=== PATIENT | male | born 1995 | race Caucasian/White ===

== ENCOUNTER 2017-08-21 14:52 | Emergency (ER) | payer BC ==
[~2017-08-21] VITALS: Ht 177.8 cm; Wt 77.5 kg
[2017-08-21 15:06] VITALS: TEMP 36.9; O2SAT 98; Ht 177.8 cm; Wt 77.5 kg
--- NOTE | 2017-08-21 15:49 | DIAGNOSTIC IMAGING REPORT ---
CHEST ONE VIEW PORTABLE CLINICAL HISTORY: CHEST PAIN dyspnea COMPARISON STUDY: No previous studies for comparison. FINDINGS: The bones soft tissues and hemidiaphragms are normal. The cardiomediastinal silhouette is normal. The lungs are clear. The pulmonary vasculature is normal. IMPRESSION: Negative chest. The above report was generated using voice recognition software. It may contain grammatical, syntax or spelling errors. Electronically signed by: Golden Srinivasan M.D. 08/21/2017 3:47 PM Dictated Date/Time: 08/21/2017 3:46 PM
[2017-08-21 16:09] LABS: MEAN CELL VOLUME 87.7 fL (80-100); MEAN CORPUSCULAR HEMOGLOBIN 30.6 pg (25-34); MEAN CORPUSCULAR HGB CONC 34.9 g/dl (32-36); MEAN PLATELET VOLUME 9.9 fL (7.4-10.4); PLATELET COUNT 285 K/uL (130-400); RED BLOOD COUNT 5.13 M/uL (4.7-6.1); WHITE BLOOD COUNT 9.38 K/uL (4.8-10.8)
[2017-08-21 16:21] LABS: POINT OF CARE TROPONIN I < 0.030 ng/ml (0-0.045)
[2017-08-21 16:33] LABS: BUN/CREATININE RATIO 14.9 (10-20); CALCIUM 9.6 mg/dl (8.5-10.1); CREATININE 1.03 mg/dl (0.60-1.40)
[2017-08-21 16:36] LABS: ALB/GLOB RATIO 1.3 (0.9-2)
[2017-08-21 18:40] VITALS: BP 134/76; PULSE 76; O2SAT 100
--- NOTE | 2017-08-21 20:08 | EMERGENCY ROOM VISIT NOTE ---
History Report prepared by Chad: Carolin Kothari Under the Supervision of: Dr. Josué Bearden M.D. First contact with patient: 15:18 Chief Complaint: CARDIAC ASSESSMENT Stated Complaint: CHEST PAIN Nursing Triage Summary: Pt arrives by ALS. Reports chest discomfort for the past 3 days. Comes and goes. Associated numbness down left arm and dizziness. Pt denies any cardiac history. denies drug use. reports some beer last night. Pt also reports he vapes Nicotine. History of Present Illness The patient is a 22 year old male who presents to the Emergency Room with complaints of a persistent "sharp chest discomfort" that began 2 days ago. He rates his discomfort as a 7/10 in severity. He notes that he has shortness of breath, sweaty palms, and is nauseous. He states that his discomfort is on and off, but lasts for several hours. The patient states that while he was in class he began feeling some chest discomfort, he stepped outside and noted he became nauseous and dizzy. He was brought to the Emergency Department via EMS. The patient denies any history of heart, lung, or kidney problems. He denies having blood clots in the past. Source of History: patient Onset: 2 days ago Position: chest Symptom Intensity: 7/10 Quality: other (chest discomfort) Timing: other (persistent) Associated Symptoms: + diaphoresis (sweaty palms), + SOB, + nausea Review of Systems See HPI for pertinent positives & negatives. A total of 10 systems reviewed and were otherwise negative. Past Medical & Surgical No prior history of heart or lung disease. Social History Smoking Status: Never Smoker Alcohol Use: occasionally Marital Status: single Occupation Status: [employer] student Current/Historical Medications No Active Prescriptions or Reported Meds Allergies Coded Allergies: No Known Allergies (Unverified , 08/21/17) Physical Exam Vital Signs Date Time Temp Pulse Resp B/P (MAP) Pulse Ox O2 Delivery O2 Flow Rate FiO2 08/21/17 18:40 76 20 134/76 100 08/21/17 18:24 62 20 116/75 99 08/21/17 16:37 65 16 128/66 98 Room Air 08/21/17 15:24 79 08/21/17 15:06 36.9 74 16 145/76 98 Room Air 08/21/17 15:06 98 Room Air 08/21/17 15:06 98 Room Air Physical Exam GENERAL: Patient is anxious HEENT: No acute trauma, normocephalic atraumatic, mucous membranes moist, no nasal congestion, no scleral icterus. NECK: No stridor, no adenopathy, no meningismus, trachea is midline. LUNGS: Clear to auscultation bilaterally, no wheeze, no rhonchi, breath sounds equal. HEART: Without murmurs gallops or rubs, regular rate and rhythm. CHEST: Tender to left chest wall, no rash ABDOMEN: Soft, nontender, bowel sounds positive, no hernias, no peritonitis. EXTREMITIES: No cyanosis or edema, full range of motion of all the joints without pain or difficulty, no signs for acute trauma. NEUROLOGIC: Oriented x 3, no acute motor or sensory deficits, no focal weakness. SKIN: No rash, no jaundice, no diaphoresis. Medical Decision & Procedures ER Provider Diagnostic Interpretation: Radiology results as stated below per my review and radiologist interpretation: CHEST ONE VIEW PORTABLE CLINICAL HISTORY: CHEST PAIN dyspnea COMPARISON STUDY: No previous studies for comparison. FINDINGS: The bones soft tissues and hemidiaphragms are normal. The cardiomediastinal silhouette is normal. The lungs are clear. The pulmonary vasculature is normal. IMPRESSION: Negative chest. The above report was generated using voice recognition software. It may contain grammatical, syntax or spelling errors. Electronically signed by: Golden Srinivasan M.D. 08/21/2017 3:47 PM Laboratory Results 08/21/17 15:55 08/21/17 15:55 Test 08/21/17 15:55 08/21/17 16:00 08/21/17 18:11 Red Blood Count 5.13 M/uL (4.7-6.1) Mean Corpuscular Volume 87.7 fL (80-100) Mean Corpuscular Hemoglobin 30.6 pg (25-34) Mean Corpuscular Hemoglobin Concent 34.9 g/dl (32-36) RDW Standard Deviation 40.5 fL (36.4-46.3) RDW Coefficient of Variation 12.6 % (11.5-14.5) Mean Platelet Volume 9.9 fL (7.4-10.4) Anion Gap 9.0 mmol/L (3-11) Est Creatinine Clear Calc Drug Dose 117.1 ml/min Estimated GFR () 119.8 Estimated GFR (Non- 103.4 BUN/Creatinine Ratio 14.9 (10-20) Calcium Level 9.6 mg/dl (8.5-10.1) Total Bilirubin 0.6 mg/dl (0.2-1) Aspartate Amino Transf (AST/SGOT) 39 U/L (15-37) Alanine Aminotransferase (ALT/SGPT) 42 U/L (12-78) Alkaline Phosphatase 93 U/L (45-117) Total Protein 7.9 gm/dl (6.4-8.2) Albumin 4.4 gm/dl (3.4-5.0) Globulin 3.5 gm/dl (2.5-4.0) Albumin/Globulin Ratio 1.3 (0.9-2) Lipase 112 U/L (73-393) Bedside D-Dimer 42 ng/mlFEU (0-450) Bedside Troponin I < 0.030 ng/ml (0-0.045) Laboratory results reviewed by me. ECG Indication: chest pain Rate (beats per minute): 72 Rhythm: normal sinus Findings: no acute ischemic change, no ectopy ED Course 1431: The patient was evaluated in room B12. A complete history and physical exam was performed. 1831: I reevaluated the patient who was resting comfortably. I also spoke to the patient's mother, who verbalized complete understanding and agreement of the exam findings. 1854: Reevaluated the patient. Discussed results and discharge instructions: He verbalized understanding and agreement. The patient is ready for discharge. Medical Decision The patient is a 22 year old male who presents to the ED with complaints of chest discomfort. Differential diagnoses considered include ME, anxiety, musculoskeletal pain, Pneumothorax, Pneumonia, PE, Dysrhythmia. There is no leukocytosis or concerning anemia. No significant electrolyte abnormality, kidney failure, hepatitis or pancreatitis. EKG shows a sinus rhythm, no acute ischemia. Cardiac enzyme testing 2 is not suggestive of acute cardiac injury. Chest film does not show pneumonia, mediastinal widening or pneumothorax. D-dimer testing is negative. With a negative d-dimer and my low suspicion for PE, I will stop the workup for this diagnosis. The patient presents with left-sided chest pain which has been intermittent. He was very anxious about the pain. The pain was reproducible on exam. The patient's cardiac workup is benign, the pain is likely musculoskeletal. The patient is being discharged with conservative measures. I spoke with the patient about his findings, I spoke to his mother at his request as well. The patient was discharged in stable condition and encouraged to return for any worsening symptoms. Medication Reconcilliation Current Medication List: was personally reviewed by me Blood Pressure Screening Patient's blood pressure: Elevated blood pressure Blood pressure disposition: Elevated BP felt to be situational Impression Primary Impression: Left sided chest pain Scribe Attestation The scribe's documentation has been prepared under my direction and personally reviewed by me in its entirety. I confirm that the note above accurately reflects all work, treatment, procedures, and medical decision making performed by me. Departure Information Dispostion Home / Self-Care Prescriptions No Active Prescriptions or Reported Meds Forms IMPORTANT VISIT INFORMATION Patient Instructions My [facility] Additional Instructions motrin 600 mg 3x per day for 5 days heat to the area will help gentle stretching and massage will help avoid gym and sports for 1 week return if worsening all lab testing today was ok chest film was ok
== END 2017-08-21 18:54 | disposition home or self-care (01) ==
LOC: C.EDB 14:55
DX: R07.9 Chest pain, unspecified (principal); R06.02 Shortness of breath

== ENCOUNTER 2017-10-10 11:17 | Emergency (ER) | payer BC ==
[~2017-10-10] VITALS: Ht 177.8 cm; Wt 82.4 kg
[2017-10-10 11:20] VITALS: TEMP 36.4; Ht 177.8 cm; Wt 82.4 kg
[2017-10-10 11:50] VITALS: O2SAT 97
--- NOTE | 2017-10-10 11:56 | DIAGNOSTIC IMAGING REPORT ---
CHEST ONE VIEW PORTABLE CLINICAL HISTORY: CHEST PAIN dyspnea COMPARISON STUDY: 08/21/2017 FINDINGS: The bones soft tissues and hemidiaphragms are normal. The cardiomediastinal silhouette is normal. The lungs are clear. The pulmonary vasculature is normal. IMPRESSION: Negative chest. The above report was generated using voice recognition software. It may contain grammatical, syntax or spelling errors. Electronically signed by: Golden Srinivasan M.D. 10/10/2017 11:55 AM Dictated Date/Time: 10/10/2017 11:55 AM
--- NOTE | 2017-10-10 12:01 | EMERGENCY ROOM VISIT NOTE ---
History First contact with patient: 11:45 Chief Complaint: CHEST PAIN Stated Complaint: CHEST/HEART PAINS AND SWELLING History of Present Illness The patient is a 22 year old male who presents to the Emergency Room with complaints of chest pain and increased heart rate. The patient states he was here at the end of last year with exactly the same symptoms. He states the he begins experiencing a slight amount of numbness, increased heart rate, and chest discomfort. He states he was diagnosed with a muscular/inflammatory condition at that time and treated with anti-inflammatories. He states the symptoms lasted for a few days after he was discharged from the emergency department, and he then went home on when to break. He states he noticed the symptoms occasionally over break, but they were not nearly as severe as they have been while he is here in school. The patient states past few days, he has been noticing increasing episodes of chest discomfort. He states yesterday he was feeling woozy in addition to having chest pain, so he went to [facility]. A chest x-ray was performed there as well as some lab work, and the provider compared the chest x-ray to one on the patient's computer which was performed in 2013. The provider was concerned that the heart may be slightly more enlarged than the previous x-ray. They recommended the patient come here for further evaluation. The patient states over the last 2 days, he has been experiencing sporadic discomfort, describes it as a pain/sharp pain in the left chest wall, lasts for a few minutes, then improves. He states with the pain, he experiences a tightness and dyspnea, and feels that he has to take short small breaths to oxygenate properly. He states the symptoms go away for a few hours, then return with the same type of episode. Patient states he exercises a proximally 5 times per week, and has never noticed any pain or symptoms with exercise. He states nothing that he does seems to help or worsen the pain. He does report some occasional congestion, headache, and dizziness over the past few days, but associated the headache and dizziness with a low blood sugar. He denies any abdominal pain, diarrhea, constipation, cough, wheezing, or recent illness. He has not taken any medication for the symptoms. Review of Systems A complete 10 point review of systems was reviewed with the patient with pertinent positives and negatives as per history of present illness. All else were negative. Past Medical/Surgical History None Family History Hypertension Social History Smoking Status: Never Smoker Smokeless Tobacco Use: No Alcohol Use: occasionally Drug Use: none Marital Status: single Housing Status: lives with roommate Occupation Status: [employer] student Current/Historical Medications Scheduled Ibuprofen (Advil), 600 MG PO UD Allergies None Physical Exam Vital Signs Date Time Temp Pulse Resp B/P (MAP) Pulse Ox O2 Delivery O2 Flow Rate FiO2 10/10/17 13:38 65 16 146/83 98 10/10/17 12:13 70 18 155/69 97 Room Air 10/10/17 12:10 68 10/10/17 11:50 97 Room Air 10/10/17 11:50 97 Room Air 10/10/17 11:20 36.4 65 18 155/83 98 Room Air Physical Exam VITALS: Vitals are noted on the nurse's note and reviewed by myself. Vital signs stable. GENERAL: This is a 22-year-old white male, in no acute distress, nondiaphoretic , well-developed well-nourished. SKIN: The skin was without rashes, erythema, edema, or bruising. There is no tenting of the skin. Capillary reflex less than 2 seconds. HEAD: Normocephalic atraumatic. EARS: External auditory canals clear, tympanic membranes pearly ahn without erythema or effusion bilaterally. EYES: Pupils equal round and reactive to light and accommodation. Conjunctivae without injection, sclerae without icterus. Extraocular movements intact. NOSE: Patent, turbinates without inflammation or discharge. No sinus tenderness. MOUTH: Mucous membranes moist. Tonsils are not enlarged. Pharynx without erythema or exudate. Uvula midline. Airway patent. Tongue does not deviate. NECK: Supple without nuchal rigidity. No lymphadenopathy. No thyromegaly. Cervical spine is nontender. No JVD. HEART: Regular rate and rhythm without murmurs gallops or rubs. No edema. LUNGS: Clear to auscultation bilaterally without wheezes, rales or rhonchi. No dullness to percussion. No retractions or accessory muscle use. ABDOMEN: Positive bowel sounds x 4. Normal tympanic percussion. Soft, nontender, without masses or organomegaly. Donaldson sign negative. No guarding or rebound tenderness. MUSCULOSKELETAL: Tenderness on palpation of the left chest wall. No muscle atrophy, erythema, or edema noted. Full range of motion without joint tenderness in all extremities. No other tenderness to palpation. Normal gait. Strength 5/5 throughout. NEURO: Patient was alert and oriented to person place and time. Normal sensation to light and sharp touch. Deep tendon reflexes 2+ throughout. No focal neurological deficits. Medical Decision & Procedures ER Provider Diagnostic Interpretation: CHEST ONE VIEW PORTABLE CLINICAL HISTORY: CHEST PAIN dyspnea COMPARISON STUDY: 08/21/2017 FINDINGS: The bones soft tissues and hemidiaphragms are normal. The cardiomediastinal silhouette is normal. The lungs are clear. The pulmonary vasculature is normal. IMPRESSION: Negative chest. The above report was generated using voice recognition software. It may contain grammatical, syntax or spelling errors. Electronically signed by: Golden Srinivasan M.D. 10/10/2017 11:55 AM Dictated Date/Time: 10/10/2017 11:55 AM CBC is without leukocytosis, anemia, thrombocytopenia. CMP did not reveal any significant renal, hepatic, electrolyte abnormalities. PT, PTT, INR negative. D-dimer less than 190. CK-MB normal. Troponin normal. Laboratory Results 10/10/17 11:42 10/10/17 11:42 Test 10/10/17 11:42 10/10/17 11:49 10/10/17 12:05 Red Blood Count 4.91 M/uL (4.7-6.1) Mean Corpuscular Volume 90.0 fL (80-100) Mean Corpuscular Hemoglobin 30.8 pg (25-34) Mean Corpuscular Hemoglobin Concent 34.2 g/dl (32-36) RDW Standard Deviation 43.3 fL (36.4-46.3) RDW Coefficient of Variation 13.2 % (11.5-14.5) Mean Platelet Volume 10.3 fL (7.4-10.4) Prothrombin Time 10.8 SECONDS (9.0-12.0) Prothromb Time International Ratio 1.0 (0.9-1.1) Activated Partial Thromboplast Time 27.1 SECONDS (21.0-31.0) Partial Thromboplastin Ratio 1.0 Anion Gap 6.0 mmol/L (3-11) Est Creatinine Clear Calc Drug Dose 107.7 ml/min Estimated GFR () 108.3 Estimated GFR (Non- 93.4 BUN/Creatinine Ratio 9.1 (10-20) Calcium Level 9.1 mg/dl (8.5-10.1) Total Bilirubin 0.5 mg/dl (0.2-1) Aspartate Amino Transf (AST/SGOT) 26 U/L (15-37) Alanine Aminotransferase (ALT/SGPT) 29 U/L (12-78) Alkaline Phosphatase 92 U/L (45-117) Total Creatine Kinase 79 U/L (39-308) Creatine Kinase MB 1.2 ng/ml (0.5-3.6) Creatine Kinase MB Ratio 1.5 (0-3.0) Total Protein 7.7 gm/dl (6.4-8.2) Albumin 4.2 gm/dl (3.4-5.0) Globulin 3.5 gm/dl (2.5-4.0) Albumin/Globulin Ratio 1.2 (0.9-2) Bedside Troponin I < 0.030 ng/ml (0-0.045) D-Dimer < 190 ug/L FEU (0-500) ECG Indication: chest pain Rate (beats per minute): 62 Rhythm: normal sinus Change: no significant change ED Course Critical pathways initiated. IV access obtained, labs drawn. EKG performed. The patient was seen and evaluated as above. I did review the orders, and I did a D-dimer test. Labs, imaging, EKG performed and reviewed. I did discuss the case with Dr. Bearden. He is in agreement with the assessment and plan. Discharge instructions reviewed, the patient was discharged home in condition. Medical Decision Etiologies such as cardiac ischemia, aortic dissection, pulmonary embolism, pneumonia, pneumothorax, psychological, musculoskeletal, infections, gastrointestinal, as well as others were entertained. This is a 22-year-old male patient presents to the emergency department today, for the second time in approximately one and half months complaining of left chest wall pain. The pain he describes sharp, and is reproducible on palpation. He was seen by [facility] yesterday, and did have a workup performed, and on comparison of a previous chest x-ray performed in 2013 , the patient's provider was concerned that the heart may have been slightly enlarged. He was encouraged to come to the emergency department today for evaluation. His cardiopulmonary evaluation here in the ED was overall negative , including a negative d-dimer. I did have long discussion with the patient regarding the possibility that his symptoms could be anxiety related. The patient states that he believes this could be contributing, however does not wish to be treated at this time. He does have a follow-up appointment scheduled with [facility] tomorrow, and will discuss the possibility for treatment for anxiety at that time. Medication Reconcilliation Current Medication List: was personally reviewed by me Blood Pressure Screening Patient's blood pressure: Normal blood pressure Impression Primary Impression: Chest wall pain Departure Information Dispostion Home / Self-Care Condition GOOD Referrals [facility] (PCP) Patient Instructions Anxiety Disorder, ED Chest Pain NonCardiac, My [facility] Additional Instructions He was seen in the emergency room today for left-sided chest pain. Labs, EKG, and imaging were unrevealing. D-dimer testing was performed to rule out blood clot. This was negative. As discussed, I suspect a musculoskeletal versus anxiety component related to the chest wall pain. Ibuprofen(Motrin, Advil) may be used for fever or pain. Use 600mg every six hours as needed. Take with food. Avoid using more than 2400mg in a 24 hour period. Do not use 2400mg per day for more than three consecutive days without physician direction. Prolonged inappropriate use can lead to stomach upset or ulcers. (AND/OR) Acetaminophen(Tylenol) may be used for fever or pain. Use 1000mg every six hours as needed. Avoid using more than 3000mg in a 24 hour period. Please follow up with [facility] tomorrow at your scheduled appointment. I do recommend you discuss possible treatment for anxiety at that time. Return to the emergency department for worsening chest pain, difficulty breathing, leg swelling, coughing up blood, dizziness, headache, fever, chills, or other concerning symptoms.
[2017-10-10 12:12] LABS: HEMATOCRIT 44.2 % (42-52); HEMOGLOBIN 15.1 g/dL (14.0-18.0); MEAN CORPUSCULAR HEMOGLOBIN 30.8 pg (25-34); MEAN CORPUSCULAR HGB CONC 34.2 g/dl (32-36); MEAN PLATELET VOLUME 10.3 fL (7.4-10.4); PLATELET COUNT 296 K/uL (130-400); RED CELL DISTRIBUTION WIDTH CV 13.2 % (11.5-14.5); RED CELL DISTRIBUTION WIDTH SD 43.3 fL (36.4-46.3); WHITE BLOOD COUNT 5.65 K/uL (4.8-10.8)
[2017-10-10 12:30] LABS: ALBUMIN 4.2 gm/dl (3.4-5.0); CALCIUM 9.1 mg/dl (8.5-10.1); CREATININE 1.12 mg/dl (0.60-1.40); POTASSIUM 3.8 mmol/L (3.5-5.1)
[2017-10-10 12:35] LABS: CKMB 1.2 ng/ml (0.5-3.6); TOTAL PROTEIN 7.7 gm/dl (6.4-8.2)
[2017-10-10 12:40] LABS: PTT PATIENT 27.1 SECONDS (21.0-31.0)
[2017-10-10] MEDS ORDERED: IBUP-1050 PO (13:03)
[2017-10-10 13:38] VITALS: BP 146/83; PULSE 65; O2SAT 98
== END 2017-10-10 13:41 | disposition home or self-care (01) ==
LOC: C.EDB 11:18 → C.EDA 13:41
DX: R07.89 Other chest pain (principal); Z82.49 Family history of ischemic heart disease and other diseases of the circulatory system

== ENCOUNTER → 2017-10-14 | Outpatient (CLI) | payer BC ==
[~2017-10-14] MED LIST: IBUP-1050 PO
--- NOTE | 2017-10-15 17:35 | ECHOCARDIOGRAM REPORT ---
*NOTICE TO RECEIVING [employer] This information is strictly Confidential and protected under [place] law. [place] law prohibits you from making any further disclosure of this information unless further disclosure is expressly permitted by the written consent of the person to whom it pertains or is authorized by law. A general authorization for the release of medical or other information is not sufficient for this purpose. Hospital accepts no responsibility if the information is made available to any other person, INCLUDING THE PATIENT. Interpretation Summary * Name: CARLOS MCCARTHY Study Date: 10/14/2017 03:05 PM BP: 118/70 mmHg * Patient Location: [facility] HR: 60 * : 1995 (M/d/yyyy) Gender: Male Height: 71 in * Age: 22 yrs Ethnicity: CA Weight: 175 lb * Ordering Physician: Henrique Bonner MD * Performed By: Altagracia Boyer RDCS * * Reason For Study: Chest Pain, R07.9 * BSA: 2.0 m2 * This was essentially a normal study. * -- Conclusions -- * Left ventricular systolic function is normal. * Normal diastolic function Procedure Details * A complete two-dimensional transthoracic echocardiogram was performed (2D, M-mode, Doppler and color flow Doppler). Left Ventricle * The left ventricle is normal in size. * There is normal left ventricular wall thickness. * Ejection Fraction = 60-65%. * Left ventricular systolic function is normal. * Normal diastolic function * The left ventricular wall motion is normal. Right Ventricle * The right ventricle is normal in size and function. * The right ventricular systolic function is normal as assessed by tricuspid annular plane systolic excursion (TAPSE) (normal >1.5 cm). Atria * The left atrial size is normal. * Right atrial size is normal. Mitral Valve * The mitral valve is grossly normal. * Significant mitral regurgitation is absent. Tricuspid Valve * The tricuspid valve anatomy is normal. * Significant tricuspid regurgitation is absent. Aortic Valve * The aortic valve is normal in structure and function. * The aortic valve is trileaflet. * No hemodynamically significant valvular aortic stenosis. * There is no significant aortic regurgitation. Great Vessels * The aortic root is normal size. Pericardium/Pleural * There is no pericardial effusion. MMode 2D Measurements and Calculations IVSd 0.91 cm IVSs 1.2 cm LVIDd 4.8 cm LVIDs 2.9 cm LVPWd 1.1 cm LVPWs 1.9 cm IVS/LVPW 0.81 FS 39.3 % EDV(Teich) 106.3 ml ESV(Teich) 32.1 ml EF(Teich) 69.8 % EDV(cubed) 108.9 ml ESV(cubed) 24.3 ml EF(cubed) 77.7 % % IVS thick 32.9 % % LVPW thick 68.5 % LV mass(C)d 174.0 grams LV mass(C)dI 87.3 grams/m\S\2 LV mass(C)s 161.7 grams LV mass(C)sI 81.2 grams/m\S\2 SV(Teich) 74.1 ml SI(Teich) 37.2 ml/m\S\2 SV(cubed) 84.6 ml SI(cubed) 42.5 ml/m\S\2 Ao root diam 2.9 cm Ao root area 6.8 cm\S\2 ACS 2.2 cm LA dimension 2.8 cm LA/Ao 0.96 LVAd ap4 30.9 cm\S\2 LVLd ap4 9.0 cm EDV(MOD-sp4) 94.5 ml EDV(sp4-el) 89.9 ml LVAs ap4 19.2 cm\S\2 LVLs ap4 8.1 cm ESV(MOD-sp4) 46.4 ml ESV(sp4-el) 38.8 ml EF(MOD-sp4) 50.9 % EF(sp4-el) 56.9 % LVAd ap2 36.1 cm\S\2 LVLd ap2 9.3 cm EDV(MOD-sp2) 123.3 ml EDV(sp2-el) 118.9 ml LVAs ap2 19.9 cm\S\2 LVLs ap2 7.8 cm ESV(MOD-sp2) 48.2 ml ESV(sp2-el) 43.4 ml EF(MOD-sp2) 60.9 % EF(sp2-el) 63.5 % LVLd %diff 3.3 % EDV(MOD-bp) 110.1 ml LVLs %diff -4.13 % ESV(MOD-bp) 48.0 ml EF(MOD-bp) 56.4 % SV(MOD-sp4) 48.1 ml SI(MOD-sp4) 24.1 ml/m\S\2 SV(MOD-sp2) 75.1 ml SI(MOD-sp2) 37.7 ml/m\S\2 SV(MOD-bp) 62.1 ml SI(MOD-bp) 31.2 ml/m\S\2 SV(sp4-el) 51.1 ml SI(sp4-el) 25.7 ml/m\S\2 SV(sp2-el) 75.4 ml SI(sp2-el) 37.9 ml/m\S\2 Doppler Measurements and Calculations MV E max chikis 98.0 cm/sec MV A max chikis 54.3 cm/sec MV E/A 1.8 MV dec time 0.19 sec Ao V2 max 147.7 cm/sec Ao max PG 8.7 mmHg Ao max PG (full) 2.1 mmHg LV V1 max PG 6.6 mmHg LV V1 max 128.5 cm/sec PA V2 max 110.0 cm/sec PA max PG 4.9 mmHg PI max chikis 149.3 cm/sec PI max PG 8.9 mmHg PI dec slope 111.7 cm/sec\S\2 PI P1/2t 391.4 msec
== END | disposition home or self-care (01) ==
LOC: C.CPL 14:56
PROVIDERS: ATTEND Emergency Medicine
DX: R07.9 Chest pain, unspecified (principal)